=== PATIENT | male | born 1990 | race Two or more races ===

== ENCOUNTER 2023-06-07 11:55 | Emergency (ER) | payer MEDICAID, OTHER ==
[2023-06-07 11:55] VITALS: TEMP 98.1; O2SAT 98
[2023-06-07] MEDS ORDERED: ONDANSETRON ODT 4 MG TAB PO ONE (16:00)
[2023-06-07] MEDS ORDERED: HYDROmorphone HCL 2 MG/ML VL/or syr IM ONE (16:00)
[2023-06-07] MEDS ORDERED: LIDOCAINE 1% HCL (LOCAL ANESTH.) INJ 20ML MDV SC ONE (17:00)
[2023-06-07 18:36] VITALS: BP 132/66; PULSE 78; RESP 20
[2023-06-07] MEDS ORDERED: CEPH500T PO (19:07)
[2023-06-07] MEDS ORDERED: IBUP-1454 PO (19:07)
[2023-06-07] MEDS ORDERED: BACDST PO (19:07)
== END 2023-06-07 19:39 | disposition home or self-care (01) ==
LOC: ER 11:55
DX: L02.31 Cutaneous abscess of buttock (principal); Z79.899 Other long term (current) drug therapy
CPT/HCPCS: 10060; 74176; 87205; 96372; 99285; J1170; J2001; Q0162